=== PATIENT | male | born 1995 | race Caucasian/White ===

== ENCOUNTER 2021-07-18 16:24 | Emergency (ER) | payer SELFPAY ==
[~2021-07-18] VITALS: Ht 185.4 cm; Wt 68.5 kg
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
[2021-07-18] MEDS ORDERED: ACETAMINOPHEN ES 500 MG TABLET PO ONE (17:00)
[2021-07-18] MEDS ORDERED: IBUPROFEN 600 MG TABLET PO ONE (17:00)
[2021-07-18 17:06] LABS: HEMOGLOBIN 14.4 g/dL (13.5-17.5); PLATELET COUNT (AUTO) 288 K/uL (150-450)
[2021-07-18 17:15] LABS: BASOPHILS # (AUTO) 0.1 K/uL (0.0-0.2); BASOPHILS % (AUTO) 0.9 % (0.0-2.0); EOSINOPHILS % (AUTO) 1.8 % (0.0-6.0); HEMATOCRIT 43 % (39-51); LYMPHOCYTES # (AUTO) 1.6 K/uL (0.8-4.8); LYMPHOCYTES % (AUTO) 11.5 % (20.0-44.0); MEAN CORPUSCULAR HGB CONC 34 g/dl (31.0-36.0); MEAN CORPUSCULAR VOLUME 88 fL (80-96); MONOCYTES # (AUTO) 0.5 K/uL (0.1-1.30); MONOCYTES % (AUTO) 3.6 % (2.0-12.0); NEUTROPHILS # (AUTO) 11.8 K/uL (1.8-8.9); NEUTROPHILS % (AUTO) 82.2 % (43.0-81.0); RED BLOOD CELL COUNT(AUTO) 4.87 MIL/uL (4.5-6.0); WHITE BLOOD COUNT (AUTO) 14.3 K/uL (4.3-11.0)
[2021-07-18 17:20] LABS: ALANINE AMINOTRANSFERASE 33 U/L (12-78); ALBUMIN 4.2 g/dL (3.4-5.0); ALCOHOL, BLOOD < 3 mg/dL (0-0); ALKALINE PHOSPHATASE 75 U/L (46-116); ASPARTATE AMINOTRANSFERASE 32 U/L (15-37); BILIRUBIN,DIRECT 0.2 mg/dL (0.0-0.2); BILIRUBIN,TOTAL 0.9 mg/dL (0.2-1.0); CALCIUM, SERUM 9.2 mg/dL (8.5-10.1); CARBON DIOXIDE 19 mmol/L (21-32); CHLORIDE 101 mmol/L (98-107); CREATININE 1.6 mg/dL (0.6-1.3); GLUCOSE 209 mg/dL (74-106); SODIUM SERUM 138 mmol/L (136-145); UREA NITROGEN, BLOOD 17 mg/dL (7-18)
[2021-07-18] MEDS ORDERED: ACETAMINOPHEN ES 500 MG TABLET ONE (17:32)
[2021-07-18] MEDS ORDERED: IBUPROFEN 600 MG TABLET ONE (17:32)
--- NOTE | 2021-07-18 17:33 | NUR ---
XRAY AT BEDSIDE
--- NOTE | 2021-07-18 19:15 | NUR ---
EMT AT BEDSIDE FOR SPLINTING
[2021-07-18] MEDS ORDERED: LEVE500T9 PO (20:23)
[2021-07-18] MEDS ORDERED: HYDR-3972 PO (20:23)
[2021-07-18] MEDS ORDERED: HYDROCODONE/APAP 5/325MG TABLET ONE (20:29)
[2021-07-18] MEDS ORDERED: HYDROCODONE/APAP 5/325MG TABLET PO ONE (20:30)
--- NOTE | 2021-07-18 20:32 | NUR ---
Patient discharged to home in stable condition. Written and verbal after care instructions given. Patient verbalizes understanding of instruction. IV removed. Catheter intact and site benign. Pressure and 4x4 applied to site. No bleeding noted. Pt wheeled out to family member's car
[2021-07-18 20:41] VITALS: BP 118/68
[2021-07-18] MEDS ORDERED: LEVETIRACETAM SOL (5 ML) 100 MG/ML UDC PO SCH (21:00)
== END 2021-07-18 20:32 | disposition home or self-care (01) ==
LOC: ER 16:26
DX: S92.192A Other fracture of left talus, initial encounter for closed fracture (principal); S82.892A Other fracture of left lower leg, initial encounter for closed fracture; S01.512A Laceration without foreign body of oral cavity, initial encounter; S20.212A Contusion of left front wall of thorax, initial encounter; S90.32XA Contusion of left foot, initial encounter; S80.212A Abrasion, left knee, initial encounter; S80.211A Abrasion, right knee, initial encounter; R56.9 Unspecified convulsions; F13.239 Sedative, hypnotic or anxiolytic dependence with withdrawal, unspecified; R41.0 Disorientation, unspecified; Z88.0 Allergy status to penicillin; V49.49XA Driver injured in collision with other motor vehicles in traffic accident, initial encounter; Y93.89 Activity, other specified; Y92.488 Other paved roadways as the place of occurrence of the external cause; Y99.8 Other external cause status
CPT/HCPCS: 36415; 70450-TC; 71250-TC; 72125-TC; 73610-TC; 73630-TC; 80048-TC; 80076-TC; 85025-TC; G0480; J1953